=== PATIENT | female | born 1970 | race Caucasian/White ===

== ENCOUNTER 2021-08-04 12:03 | Emergency (ER) | payer BC ==
[~2021-08-04] VITALS: Ht 165.1 cm; Wt 139.1 kg
[2021-08-04 12:27] VITALS: BP 167/98
[2021-08-04 13:12] LABS: BASOPHILS % (AUTO) 0.2 % (0-1); EOSINOPHILS # (AUTO) 0.1 X10'3 (0-0.9); EOSINOPHILS % (AUTO) 0.3 % (0-6); HEMATOCRIT 44.3 % (35.0-45.0); HEMOGLOBIN 14.6 g/dl (12.0-16.0); LYMPHOCYTES # (AUTO) 3.7 X10'3 (1.1-4.8); LYMPHOCYTES % (AUTO) 21.2 % (21-51); MEAN CORPUSCULAR HEMOGLOBIN 32.4 PG (27.0-31.0); MEAN CORPUSCULAR HGB CONC 32.9 g/dL (33.0-36.5); MEAN CORPUSCULAR VOLUME 98.5 FL (78-98); MEAN PLATELET VOLUME 10.6 FL (7.4-10.4); MONOCYTES # (AUTO) 1.5 X10'3 (0-0.9); MONOCYTES % (AUTO) 8.4 % (2-12); NEUTROPHILS # (AUTO) 12.2 X10'3 (1.8-7.7); NEUTROPHILS % (AUTO) 69.9 % (42-75); PLATELET COUNT 265 X10'3 (140-440); RED BLOOD COUNT 4.49 X10'6 (4.20-5.60); RED CELL DISTRIBUTION WIDTH 13.8 % (11.5-14.5); WHITE BLOOD COUNT 17.5 X10'3 (4.5-11.0)
[2021-08-04 13:30] LABS: ALANINE AMINOTRANSFERASE 304 U/L (12-78); ALBUMIN/GLOBULIN RATIO 0.8 (1.1-1.5); ALKALINE PHOSPHATASE 63 IU/L (46-116); ANION GAP 10 (8-16); ASPARTATE AMINO TRANSFERASE 52 U/L (10-37); BILIRUBIN,TOTAL 0.3 MG/DL (0.1-1.0); BLOOD UREA NITROGEN 28 MG/DL (7-18); BUN/CREATININE RATIO 33.3 (6.6-38.0); CALCIUM 8.2 MG/DL (8.5-10.1); CHLORIDE 104 MMOL/L (99-107); CREATININE 0.84 MG/DL (0.40-0.90); GLUCOSE 114 MG/DL (70-104); SODIUM 139 MMOL/L (135-145); TOTAL CARBON DIOXIDE 25.3 MMOL/L (24-32); TOTAL PROTEIN 6.8 G/DL (6.4-8.2); eGFR 72 ML/MIN
[2021-08-04 14:35] LABS: URINE AMPHETAMINE SCREEN NEGATIVE (Neg); URINE BARBITUATE SCREEN NEGATIVE (Neg); URINE BENZODIAZEPINES SCREEN NEGATIVE (Neg); URINE CANNABINOID SCREEN POSITIVE (Neg); URINE COCAINE SCREEN NEGATIVE (Neg); URINE METHADONE SCREEN NEGATIVE (Neg); URINE OPIATE SCREEN NEGATIVE (Neg); URINE PHENCYCLIDINE SCREEN NEGATIVE (Neg)
[2021-08-04] MEDS ORDERED: nitroGLYCERIN 0.4mg SUBLingual tab SL PRN (14:55)
[2021-08-04] MEDS ORDERED: aspirin 81mg tab.chew PO ONE (14:55)
[2021-08-04] MEDS ORDERED: iohexol 350MG/ML 100ml bottle IV ONE (15:28)
[2021-08-04] MEDS ORDERED: ALBU6.7H9 INH (17:06)
[2021-08-04] MEDS ORDERED: AMOX-422 PO (17:06)
== END 2021-08-04 18:06 | disposition home or self-care (01) ==
LOC: ER 12:03
DX: J20.9 Acute bronchitis, unspecified (principal); R07.9 Chest pain, unspecified; Z20.822 Contact with and (suspected) exposure to COVID-19
CPT/HCPCS: 36415; 71045; 71275; 80053; 80305; 83880; 84484; 85025; 93005; 99285; Q9967; U0003; U0005

== ENCOUNTER 2022-11-17 13:54 | Inpatient (IN) | payer BC, MEDICARE ==
[~2022-11-17] VITALS: Ht 165.1 cm; Wt 151.8 kg
[~2022-11-17 13:54] MED LIST: ALBU6.7H14 INH
[2022-11-17] MEDS ORDERED: ipratropium/albuterol 3ml nebule NEB PRN (14:45)
[2022-11-17] MEDS ORDERED: methylPREDNISolone sod succ 125mg/2ml vial IV ONE (14:50)
[2022-11-17] MEDS ORDERED: normal saline 1000ML IV soln IVB ONE (14:50)
[2022-11-17] MEDS ORDERED: levoFLOXACIN-Levaquin 750MG/D5 150 ML IV ONE (14:55)
[2022-11-17 15:45] LABS: BASOPHILS # (AUTO) 0.1 X10'3 (0-0.2); BASOPHILS % (AUTO) 0.4 % (0-1); EOSINOPHILS % (AUTO) 0 % (0-6); HEMATOCRIT 38.3 % (35.0-45.0); HEMOGLOBIN 12.8 g/dl (12.0-16.0); LYMPHOCYTES # (AUTO) 1.6 X10'3 (1.1-4.8); LYMPHOCYTES % (AUTO) 10.9 % (21-51); MEAN CORPUSCULAR HEMOGLOBIN 32.4 PG (27.0-31.0); MEAN CORPUSCULAR HGB CONC 33.5 g/dL (33.0-36.5); MEAN CORPUSCULAR VOLUME 96.7 FL (78-98); MEAN PLATELET VOLUME 10.8 FL (7.4-10.4); MONOCYTES # (AUTO) 0.8 X10'3 (0-0.9); MONOCYTES % (AUTO) 5.6 % (2-12); NEUTROPHILS # (AUTO) 12.4 X10'3 (1.8-7.7); NEUTROPHILS % (AUTO) 83.1 % (42-75); PLATELET COUNT 255 X10'3 (140-440); RED BLOOD COUNT 3.96 X10'6 (4.20-5.60); RED CELL DISTRIBUTION WIDTH 12.9 % (11.5-14.5); WHITE BLOOD COUNT 14.9 X10'3 (4.5-11.0)
[2022-11-17] MEDS ORDERED: magnesium 2GM in 50ml NS 50 ML IV ONE (15:45)
[2022-11-17 16:00] LABS: ALANINE AMINOTRANSFERASE 84 U/L (12-78); ALBUMIN 2.7 G/DL (3.4-5.0); ALBUMIN/GLOBULIN RATIO 0.6 (1.1-1.5); ALKALINE PHOSPHATASE 67 IU/L (46-116); ANION GAP 11 (8-16); ASPARTATE AMINO TRANSFERASE 89 U/L (10-37); BILIRUBIN,TOTAL 0.2 MG/DL (0.1-1.0); BLOOD UREA NITROGEN 21 MG/DL (7-18); BUN/CREATININE RATIO 20.4 (6.6-38.0); CALCIUM 8.4 MG/DL (8.5-10.1); CHLORIDE 102 MMOL/L (99-107); CREATININE 1.03 MG/DL (0.40-0.90); GLUCOSE 338 MG/DL (70-104); POTASSIUM 4.2 MMOL/L (3.5-5.1); SODIUM 137 MMOL/L (135-145); TOTAL CARBON DIOXIDE 23.7 MMOL/L (24-32); eGFR 56 ML/MIN
[2022-11-17] MEDS ORDERED: normal saline 1000ML IV soln IV ONE (16:10)
[2022-11-17 17:04] LABS: ANISOCYTOSIS FEW; PLATELET ESTIMATE NORMAL; TOTAL CELLS COUNTED 100
[2022-11-17] MEDS ORDERED: iohexol 350MG/ML 100ml bottle IV ONE (17:33)
[2022-11-17] MEDS ORDERED: ondansetron/PF 4mg/2ml inj IV PRN (18:25)
[2022-11-17] MEDS ORDERED: mag hydrox/Alum hydrox/simeth 30ml oral suspension PO PRN (18:25)
[2022-11-17] MEDS ORDERED: bisacodyl 10mg suppository rectal RC PRN (18:25)
[2022-11-17] MEDS ORDERED: diphenhydrAMINE 25mg capsule PO PRN (18:25)
[2022-11-17] MEDS ORDERED: albuterol 2.5 MG/3 ML nebule NEB ONE (18:25)
[2022-11-17] MEDS ORDERED: potassium Cl 20 mEq SR tablet PO PRN ×2 (18:25)
[2022-11-17] MEDS ORDERED: morphine 2 MG/ML inj. syringe IV PRN ×2 (18:25)
[2022-11-17] MEDS ORDERED: DEXTROSE 15 GM of carb/4 tabs (each vial/BOTTLE has 4 tablets) PO PRN ×4 (18:25→19:40)
[2022-11-17] MEDS ORDERED: MESSAGE TO PHARMACY PO ONE ×2 (18:25→19:40)
[2022-11-17] MEDS: normal saline 1000ml 1,000 ML IV SCH (18:25)
[2022-11-17] MEDS ORDERED: potassium Cl 40MEQ/1/2NS 520ml 520 ML IV PRN (18:25)
[2022-11-17] MEDS ORDERED: PERFLUTREN PROTEIN-A MICROSPHR (Optison) 0.22 MG/ML 3ML VIAL IV ONE (18:25)
[2022-11-17] MEDS ORDERED: dextrose 50%-water 50ml dispensing syringe IV PRN ×4 (18:25→19:40)
[2022-11-17] MEDS ORDERED: magnesium hydroxide 30ml (MOM) UD suspension PO PRN (18:25)
[2022-11-17] MEDS ORDERED: magnesium 4gm in 100ml NS 100 ML IV PRN (18:25)
[2022-11-17] MEDS ORDERED: acetaminophen 325mg tablet PO PRN ×2 (18:25)
[2022-11-17] MEDS ORDERED: HYDROcodone/acetaminophen 5mg/325mg tablet PO PRN (18:25)
[2022-11-17] MEDS ORDERED: acetaminophen 650mg rectal suppository RC PRN (18:25)
[2022-11-17] MEDS ORDERED: glucagon, human recombinant 1mg kit SUBCUT PRN ×2 (18:25→19:40)
[2022-11-17] MEDS ORDERED: magnesium Cl slow-release 64mg tablet PO PRN (18:25)
[2022-11-17] MEDS: ipratropium/albuterol 3ml nebule NEB SCH ×2 (18:38→23:00)
[2022-11-17] MEDS ORDERED: GLYC1TAB23 PO (19:02)
[2022-11-17] MEDS ORDERED: GABA300C PO (19:02)
[2022-11-17] MEDS ORDERED: POTA-207 PO (19:02)
[2022-11-17] MEDS ORDERED: NIRM1TAB PO (19:02)
[2022-11-17] MEDS ORDERED: LISI40TA13 PO (19:02)
[2022-11-17] MEDS ORDERED: DULO30CA52 PO (19:02)
[2022-11-17] MEDS ORDERED: ATOR20TA66 PO (19:02)
[2022-11-17] MEDS ORDERED: METO-395 PO (19:02)
[2022-11-17] MEDS ORDERED: DICL75TA28 PO (19:02)
--- NOTE | 2022-11-17 19:05 | NUR ---
Assumed patient care. Page to hospitalist regarding concern of patient blood pressure, awaiting call back.
[2022-11-17 19:19] LABS: HEMOGLOBIN A1C 6.9 % (4.5-6.2)
[2022-11-17] MEDS: docusate sod 100mg capsule PO SCH (19:27)
[2022-11-17] MEDS: K and/or MAG REPLACEMENT MC SCH (19:29)
[2022-11-17] MEDS ORDERED: furosemide 40mg/4ml inj IV ONE (19:40)
[2022-11-17] MEDS ORDERED: insulin Lispro (HumaLOG) vial - multi-dose SQ SCH (19:40)
[2022-11-17] MEDS ORDERED: furosemide 10 MG/1 ML 10ml inj IV ONE (19:40)
[2022-11-17] MEDS: methylPREDNISolone sod succ 125mg/2ml vial IV SCH (20:01)
[2022-11-17] MEDS ORDERED: insulin glargine (Lantus) pen - multi-dose SQ SCH (21:00)
[2022-11-17] MEDS: enoxaparin 40mg/0.4ml syringe SUBCUT SCH (21:07)
[2022-11-17] MEDS: insulin glargine (Lantus) pen - multi-dose SQ SCH (21:09)
[2022-11-17] MEDS: insulin Lispro (HumaLOG) vial - multi-dose SQ SCH (21:10)
--- NOTE | 2022-11-17 21:31 | NUR ---
Page to hospitalist sent regarding patient blood pressure - 40mg furosemide ineffective. Awaiting call back.
[2022-11-17] MEDS ORDERED: hyDRALAzine 10mg tablet PO SCH (22:00)
[2022-11-17 22:22] LABS: CLARITY,URINE CLEAR (Clear); COLOR,URINE STRAW (Yellow); GLUCOSE, URINE NEGATIVE (Neg); KETONES,URINE NEGATIVE (Neg); LEUKOCYTE ESTERASE ,URINE NEGATIVE (Neg); NITRITES, URINE NEGATIVE (Neg); OCCULT BLOOD,URINE TRACE-INTACT (Neg); PROTEIN,URINE NEGATIVE (Neg); UROBILINOGEN,URINE 0.2 E.U/dL (0.2-1.0)
[2022-11-17 22:24] LABS: UA COLLECTION TYPE CLN CATCH MIDSTREAM
[2022-11-17 22:30] LABS: BACTERIA,URINE NONE SEEN /HPF (Neg); MUCUS STRANDS NONE SEEN /LPF (Neg); RBC,URINE 0-2 /HPF (0-2); SQUAMOUS EPITHELIAL CELL,UR FEW /LPF (FEW); WBC,URINE 0-4 /HPF (0-4)
[2022-11-17 22:36] LABS: URINE AMPHETAMINE SCREEN NEGATIVE (Neg); URINE BARBITUATE SCREEN NEGATIVE (Neg); URINE BENZODIAZEPINES SCREEN NEGATIVE (Neg); URINE CANNABINOID SCREEN NEGATIVE (Neg); URINE COCAINE SCREEN NEGATIVE (Neg); URINE METHADONE SCREEN NEGATIVE (Neg); URINE OPIATE SCREEN NEGATIVE (Neg); URINE PHENCYCLIDINE SCREEN NEGATIVE (Neg)
[2022-11-18] MEDS: ipratropium/albuterol 3ml nebule NEB SCH ×3 (02:35→11:00)
[2022-11-18] MEDS: benzonatate 100mg capsule PO SCH ×4 (02:50→23:47)
[2022-11-18] MEDS: methylPREDNISolone sod succ 125mg/2ml vial IV SCH ×4 (02:51→20:23)
--- NOTE | 2022-11-18 06:33 | NUR ---
Patient in room ED 3. I have received report from Holden HART and had the opportunity to ask questions and assume patient care.
[2022-11-18 07:16] LABS: BASOPHILS % (AUTO) 0.3 % (0-1); EOSINOPHILS % (AUTO) 0.1 % (0-6); HEMATOCRIT 40.8 % (35.0-45.0); HEMOGLOBIN 13.6 g/dl (12.0-16.0); LYMPHOCYTES # (AUTO) 1.7 X10'3 (1.1-4.8); MEAN CORPUSCULAR HEMOGLOBIN 32.1 PG (27.0-31.0); MEAN CORPUSCULAR HGB CONC 33.3 g/dL (33.0-36.5); MEAN CORPUSCULAR VOLUME 96.5 FL (78-98); MONOCYTES # (AUTO) 0.6 X10'3 (0-0.9); MONOCYTES % (AUTO) 3.8 % (2-12); NEUTROPHILS # (AUTO) 13.2 X10'3 (1.8-7.7); NEUTROPHILS % (AUTO) 84.8 % (42-75); PLATELET COUNT 243 X10'3 (140-440); RED BLOOD COUNT 4.23 X10'6 (4.20-5.60); RED CELL DISTRIBUTION WIDTH 12.9 % (11.5-14.5); WHITE BLOOD COUNT 15.5 X10'3 (4.5-11.0)
[2022-11-18 07:21] VITALS: BP 193/93
[2022-11-18 07:23] LABS: D-DIMER 0.43 MG/L FEU (0-0.50)
[2022-11-18 07:34] VITALS: BP 193/93
[2022-11-18 07:39] LABS: ALANINE AMINOTRANSFERASE 80 U/L (12-78); ALBUMIN 2.9 G/DL (3.4-5.0); ALBUMIN/GLOBULIN RATIO 0.7 (1.1-1.5); ALKALINE PHOSPHATASE 69 IU/L (46-116); ANION GAP 9 (8-16); ASPARTATE AMINO TRANSFERASE 38 U/L (10-37); BILIRUBIN,TOTAL 0.2 MG/DL (0.1-1.0); BLOOD UREA NITROGEN 26 MG/DL (7-18); BUN/CREATININE RATIO 27.7 (6.6-38.0); C-REACTIVE PROTEIN 0.91 MG/DL (0.0-0.5); CALCIUM 8.6 MG/DL (8.5-10.1); CHLORIDE 100 MMOL/L (99-107); CHOL/HDL RATIO 4.1 (0.00-4.99); CHOLESTEROL 186 MG/DL (0-200); CREATININE 0.94 MG/DL (0.40-0.90); GLUCOSE 278 MG/DL (70-104); HDL CHOLESTEROL 45 MG/DL (35-60); LACTATE DEHYDROGENASE 155 U/L (81-234); LDL CHOLESTEROL 110 MG/DL (50-100); MAGNESIUM 2.4 MG/DL (1.5-2.4); POTASSIUM 4.8 MMOL/L (3.5-5.1); SODIUM 135 MMOL/L (135-145); TOTAL CARBON DIOXIDE 26.2 MMOL/L (24-32); TOTAL PROTEIN 7.3 G/DL (6.4-8.2); TRIGLYCERIDES 255 MG/DL (20-135); eGFR 63 ML/MIN
[2022-11-18] MEDS: normal saline 1000ml 1,000 ML IV SCH ×2 (07:45→21:16)
[2022-11-18] MEDS: K and/or MAG REPLACEMENT MC SCH ×2 (08:00→20:00)
[2022-11-18] MEDS: docusate sod 100mg capsule PO SCH ×2 (08:00→20:22)
[2022-11-18 08:42] LABS: LARGE PLATELETS FEW; PLATELET ESTIMATE NORMAL
--- NOTE | 2022-11-18 08:57 | NUR ---
patient 3019, Alexandra Vincent, please reconcile meds. Thank you, HAILEY Hall PCU @[phone].
[2022-11-18] MEDS: insulin Lispro (HumaLOG) vial - multi-dose SQ SCH ×4 (09:12→21:40)
[2022-11-18] MEDS: enoxaparin 40mg/0.4ml syringe SUBCUT SCH ×2 (10:11→20:22)
[2022-11-18 11:00] VITALS: BP 185/80
--- NOTE | 2022-11-18 11:27 | NUR ---
Pt. refused 1100 SVN. States she doesn't need one at this time
[2022-11-18] MEDS ORDERED: FURO-149 PO (15:00)
[2022-11-18] MEDS ORDERED: ALBU6.7H14 INH (15:01)
[2022-11-18 15:02] VITALS: BP 145/88
[2022-11-18] MEDS ORDERED: ACET-2006 PO (15:02)
[2022-11-18] MEDS ORDERED: IBUP-1984 PO (15:03)
[2022-11-18] MEDS ORDERED: FLUT1BLS4 IH (15:03)
[2022-11-18] MEDS ORDERED: PRED5TAB49 PO (15:05)
[2022-11-18] MEDS ORDERED: AZIT250T83 PO (15:06)
[2022-11-18] MEDS: levoFLOXACIN-Levaquin 750MG/D5 150 ML IV SCH (16:46)
[2022-11-18] MEDS: HYDROcodone/acetaminophen 10/325mg tab PO PRN (17:05)
[2022-11-18] MEDS ORDERED: glycopyrrolate 1mg tablet PO PRN (17:15)
[2022-11-18] MEDS ORDERED: non-formulary drug (Acetaminophen (Acetaminophen Extra Strength) 1 TAB) PO PRN (17:15)
[2022-11-18] MEDS ORDERED: furosemide 40mg tablet PO PRN (17:15)
[2022-11-18] MEDS ORDERED: albuterol 2.5 MG/3 ML nebule NEB PRN (17:40)
[2022-11-18 18:00] VITALS: BP_SYST 180; BP_SYST 214; BP_DIAS 102; BP_DIAS 83
--- NOTE | 2022-11-18 18:00 | NUR ---
Patient in room PCU 3019. I have received report from STEPH HART and had the opportunity to ask questions and assume patient care.
--- NOTE | 2022-11-18 18:21 | NUR ---
Problems reprioritized. Patient report given, questions answered & plan of care reviewed with Laurita HART.
[2022-11-18] MEDS ORDERED: albuterol 2.5 MG/3 ML nebule NEB SCH (19:00)
[2022-11-18] MEDS: duloxetine 30mg CAPSULE.DR PO SCH (20:24)
[2022-11-18] MEDS: gabapentin 300mg capsule PO SCH (20:28)
[2022-11-18] MEDS: atorvastatin 20mg tablet PO SCH (20:28)
[2022-11-18] MEDS: hyDRALAzine 10mg tablet PO PRN (20:29)
[2022-11-18] MEDS: lisinopril 20mg tablet PO SCH (20:53)
[2022-11-18] MEDS ORDERED: ipratropium 0.5 MG/2.5ML nebule IH SCH (21:00)
[2022-11-18] MEDS ORDERED: budesonide 0.5mg/2ml UD nebule IH SCH (21:00)
[2022-11-18] MEDS: insulin glargine (Lantus) pen - multi-dose SQ SCH (21:34)
[2022-11-18 22:00] VITALS: BP 180/86
[2022-11-18] MEDS ORDERED: metoprolol succinate 25mg (24-HOUR) SR. Tablet PO ONE (22:25)
[2022-11-19] MEDS: methylPREDNISolone sod succ 125mg/2ml vial IV SCH ×4 (01:56→20:51)
[2022-11-19 02:00] VITALS: BP 158/77
[2022-11-19 06:15] VITALS: BP 172/92
--- NOTE | 2022-11-19 06:44 | NUR ---
Patient in room PCU 3019. I have received report from Laurita HART and had the opportunity to ask questions and assume patient care. Pt is Sitting up in bed on cell phone. Pt on 2L NC. No s/s of distress. No c/o pain at this time. BLL, call light within reach, frequently used items in reach, frequent rounding. Will continue to monitor.
[2022-11-19 07:03] LABS: BASOPHILS % (AUTO) 0.1 % (0-1); EOSINOPHILS % (AUTO) 0 % (0-6); HEMATOCRIT 41.1 % (35.0-45.0); HEMOGLOBIN 13.5 g/dl (12.0-16.0); LYMPHOCYTES # (AUTO) 1.7 X10'3 (1.1-4.8); LYMPHOCYTES % (AUTO) 10.4 % (21-51); MEAN CORPUSCULAR HEMOGLOBIN 31.3 PG (27.0-31.0); MEAN CORPUSCULAR HGB CONC 32.7 g/dL (33.0-36.5); MEAN CORPUSCULAR VOLUME 95.6 FL (78-98); MEAN PLATELET VOLUME 10.8 FL (7.4-10.4); MONOCYTES # (AUTO) 0.9 X10'3 (0-0.9); MONOCYTES % (AUTO) 5.6 % (2-12); NEUTROPHILS # (AUTO) 13.7 X10'3 (1.8-7.7); NEUTROPHILS % (AUTO) 83.9 % (42-75); PLATELET COUNT 269 X10'3 (140-440); WHITE BLOOD COUNT 16.3 X10'3 (4.5-11.0)
[2022-11-19 07:08] LABS: D-DIMER 0.29 MG/L FEU (0-0.50)
[2022-11-19 07:15] LABS: ALANINE AMINOTRANSFERASE 81 U/L (12-78); ALBUMIN 2.8 G/DL (3.4-5.0); ALBUMIN/GLOBULIN RATIO 0.7 (1.1-1.5); ALKALINE PHOSPHATASE 62 IU/L (46-116); ANION GAP 8 (8-16); ASPARTATE AMINO TRANSFERASE 45 U/L (10-37); BILIRUBIN,TOTAL 0.3 MG/DL (0.1-1.0); BLOOD UREA NITROGEN 28 MG/DL (7-18); BUN/CREATININE RATIO 32.2 (6.6-38.0); C-REACTIVE PROTEIN 0.43 MG/DL (0.0-0.5); CALCIUM 8.6 MG/DL (8.5-10.1); CHLORIDE 102 MMOL/L (99-107); CREATININE 0.87 MG/DL (0.40-0.90); GLUCOSE 226 MG/DL (70-104); LACTATE DEHYDROGENASE 214 U/L (81-234); MAGNESIUM 2.5 MG/DL (1.5-2.4); POTASSIUM 4.5 MMOL/L (3.5-5.1); SODIUM 136 MMOL/L (135-145); TOTAL CARBON DIOXIDE 26.4 MMOL/L (24-32); TOTAL PROTEIN 6.9 G/DL (6.4-8.2); eGFR 69 ML/MIN
[2022-11-19] MEDS: lisinopril 20mg tablet PO SCH ×2 (08:00→20:54)
[2022-11-19] MEDS: Fluticasone/Umeclidin/Vilanter (Trelegy Ellipta 100-62.5-25) IH SCH (08:00)
[2022-11-19] MEDS: benzonatate 100mg capsule PO SCH ×2 (08:00→16:00)
[2022-11-19] MEDS: docusate sod 100mg capsule PO SCH ×2 (08:00→20:57)
[2022-11-19] MEDS: duloxetine 30mg CAPSULE.DR PO SCH ×2 (08:00→20:55)
[2022-11-19] MEDS: metoprolol succinate 25mg (24-HOUR) SR. Tablet PO SCH (08:00)
[2022-11-19] MEDS ORDERED: metoprolol succinate 25mg (24-HOUR) SR. Tablet PO SCH (08:00)
[2022-11-19] MEDS: enoxaparin 40mg/0.4ml syringe SUBCUT SCH ×2 (08:00→20:57)
[2022-11-19] MEDS: K and/or MAG REPLACEMENT MC SCH ×2 (08:00→20:00)
[2022-11-19 08:30] VITALS: BP 134/77
--- NOTE | 2022-11-19 09:32 | NUR ---
Message: Alexandra Vincent 3019: HR has been below 60 for a few hours. Do you want Metoprolol ER 25mg given? -Isabel EXT [phone] Addendum: 11/19/22 at 1344 by Isabel Scherer RN said to hold Metoprolol for today. Resume tomorrow as scheduled.
[2022-11-19] MEDS: insulin Lispro (HumaLOG) vial - multi-dose SQ SCH ×3 (09:46→21:37)
[2022-11-19] MEDS: normal saline 1000ml 1,000 ML IV SCH ×2 (10:25→23:45)
[2022-11-19] MEDS: HYDROcodone/acetaminophen 10/325mg tab PO PRN (13:23)
--- NOTE | 2022-11-19 13:43 | NUR ---
Alexandra Vincent [phone] Asking for Breathing TX. -Thanks
[2022-11-19] MEDS: albuterol 60 PUFF/8GM Inhaler IH PRN ×2 (15:21→22:13)
[2022-11-19] MEDS: levoFLOXACIN-Levaquin 750MG/D5 150 ML IV SCH (16:00)
[2022-11-19 18:00] VITALS: BP 195/86
[2022-11-19] MEDS: gabapentin 300mg capsule PO SCH (20:55)
[2022-11-19] MEDS: atorvastatin 20mg tablet PO SCH (20:56)
[2022-11-19] MEDS: insulin glargine (Lantus) pen - multi-dose SQ SCH (21:34)
[2022-11-19] MEDS: hyDRALAzine 10mg tablet PO PRN (21:53)
[2022-11-19 22:00] VITALS: BP 166/95
[2022-11-19] MEDS ORDERED: amLODIPine 5mg tablet PO ONE (23:25)
[2022-11-20] MEDS: benzonatate 100mg capsule PO SCH ×2 (00:05→09:18)
[2022-11-20] MEDS: HYDROcodone/acetaminophen 10/325mg tab PO PRN ×2 (00:08→09:18)
[2022-11-20 02:00] VITALS: BP 168/92
[2022-11-20] MEDS: methylPREDNISolone sod succ 125mg/2ml vial IV SCH ×3 (02:09→14:23)
[2022-11-20 06:00] VITALS: BP 157/78
--- NOTE | 2022-11-20 06:43 | NUR ---
Patient in room PCU 3019. I have received report from Laurita HART and had the opportunity to ask questions and assume patient care. Pt is resting on L side of body in bed. Pt on CPAP. No s/s of distress. No s/s of pain at this time. 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 Will continue to monitor.
[2022-11-20 07:36] LABS: BASOPHILS % (AUTO) 0.2 % (0-1); EOSINOPHILS % (AUTO) 0 % (0-6); HEMATOCRIT 40.1 % (35.0-45.0); HEMOGLOBIN 13.2 g/dl (12.0-16.0); LYMPHOCYTES # (AUTO) 1.7 X10'3 (1.1-4.8); LYMPHOCYTES % (AUTO) 12.3 % (21-51); MEAN CORPUSCULAR HEMOGLOBIN 31.7 PG (27.0-31.0); MEAN CORPUSCULAR HGB CONC 32.9 g/dL (33.0-36.5); MEAN CORPUSCULAR VOLUME 96.5 FL (78-98); MEAN PLATELET VOLUME 10.5 FL (7.4-10.4); MONOCYTES # (AUTO) 0.6 X10'3 (0-0.9); MONOCYTES % (AUTO) 4.7 % (2-12); NEUTROPHILS # (AUTO) 11.4 X10'3 (1.8-7.7); NEUTROPHILS % (AUTO) 82.8 % (42-75); PLATELET COUNT 228 X10'3 (140-440); RED BLOOD COUNT 4.16 X10'6 (4.20-5.60); RED CELL DISTRIBUTION WIDTH 12.9 % (11.5-14.5); WHITE BLOOD COUNT 13.8 X10'3 (4.5-11.0)
[2022-11-20 07:52] LABS: D-DIMER 0.34 MG/L FEU (0-0.50)
[2022-11-20] MEDS: Fluticasone/Umeclidin/Vilanter (Trelegy Ellipta 100-62.5-25) IH SCH (07:53)
[2022-11-20 07:57] LABS: ALANINE AMINOTRANSFERASE 99 U/L (12-78); ALBUMIN 2.6 G/DL (3.4-5.0); ALBUMIN/GLOBULIN RATIO 0.7 (1.1-1.5); ALKALINE PHOSPHATASE 58 IU/L (46-116); ANION GAP 7 (8-16); ASPARTATE AMINO TRANSFERASE 38 U/L (10-37); BILIRUBIN,TOTAL 0.3 MG/DL (0.1-1.0); BLOOD UREA NITROGEN 30 MG/DL (7-18); BUN/CREATININE RATIO 30.9 (6.6-38.0); C-REACTIVE PROTEIN 0.15 MG/DL (0.0-0.5); CHLORIDE 103 MMOL/L (99-107); CREATININE 0.97 MG/DL (0.40-0.90); GLUCOSE 224 MG/DL (70-104); LACTATE DEHYDROGENASE 170 U/L (81-234); MAGNESIUM 2.3 MG/DL (1.5-2.4); PHOSPHORUS 4.4 MG/DL (2.3-4.5); POTASSIUM 4.6 MMOL/L (3.5-5.1); SODIUM 135 MMOL/L (135-145); TOTAL CARBON DIOXIDE 25.4 MMOL/L (24-32); TOTAL PROTEIN 6.4 G/DL (6.4-8.2); eGFR 61 ML/MIN
[2022-11-20] MEDS: docusate sod 100mg capsule PO SCH (08:00)
[2022-11-20] MEDS: metoprolol succinate 25mg (24-HOUR) SR. Tablet PO SCH (08:00)
[2022-11-20] MEDS: K and/or MAG REPLACEMENT MC SCH (08:00)
[2022-11-20] MEDS: insulin Lispro (HumaLOG) vial - multi-dose SQ SCH ×2 (09:17→14:28)
[2022-11-20] MEDS: duloxetine 30mg CAPSULE.DR PO SCH (09:17)
[2022-11-20] MEDS: lisinopril 20mg tablet PO SCH (09:19)
[2022-11-20] MEDS: enoxaparin 40mg/0.4ml syringe SUBCUT SCH (09:22)
[2022-11-20 09:47] VITALS: BP 156/84
[2022-11-20 11:00] VITALS: BP 171/81
[2022-11-20] MEDS: normal saline 1000ml 1,000 ML IV SCH (13:05)
[2022-11-20] MEDS ORDERED: ASPI-611 PO (13:15)
[2022-11-20] MEDS ORDERED: LACT1CAP26 PO (13:15)
[2022-11-20] MEDS ORDERED: LEVO750T68 PO (13:15)
[2022-11-20] MEDS ORDERED: AMLO5TAB16 PO (13:15)
[2022-11-20] MEDS ORDERED: METF-1203 PO (13:15)
[2022-11-20] MEDS ORDERED: PRED10TA23 PO (13:18)
--- NOTE | 2022-11-20 16:42 | NUR ---
Pt DC'd to personal vehicle with .VSS, PT afebrile no issues with medications. PIV to RFA removed. Tip intact, no c/o pain at this site. All discharge questions answered. All personal belonging left with PT.
== END 2022-11-20 15:59 | disposition home or self-care (01) | DRG 177 ==
LOC: ER 13:55 → ED HOLD 18:25 → PCU 3S 11-18 07:06
PROVIDERS: ADMIT Family Medicine; ATTEND Family Medicine
PROC: B32T1ZZ Computerized Tomography (CT Scan) of Left Pulmonary Artery using Low Osmolar Contrast (ICD-10-PCS; 2022-11-17)
PROC: B3201ZZ Computerized Tomography (CT Scan) of Thoracic Aorta using Low Osmolar Contrast (ICD-10-PCS; 2022-11-17)
PROC: B32S1ZZ Computerized Tomography (CT Scan) of Right Pulmonary Artery using Low Osmolar Contrast (ICD-10-PCS; 2022-11-17)
PROC: 5A09357 Assistance with Respiratory Ventilation, Less than 24 Consecutive Hours, Continuous Positive Airway Pressure (ICD-10-PCS; principal; 2022-11-18)
PROC: 5A09357 Assistance with Respiratory Ventilation, Less than 24 Consecutive Hours, Continuous Positive Airway Pressure (ICD-10-PCS; 2022-11-19)
PROC: 5A09357 Assistance with Respiratory Ventilation, Less than 24 Consecutive Hours, Continuous Positive Airway Pressure (ICD-10-PCS; 2022-11-20)
DX: U07.1 COVID-19 (principal); J12.82 Pneumonia due to coronavirus disease 2019; J15.9 Unspecified bacterial pneumonia; N17.0 Acute kidney failure with tubular necrosis; J96.20 Acute and chronic respiratory failure, unspecified whether with hypoxia or hypercapnia; J98.11 Atelectasis; E87.20 Acidosis, unspecified; J44.0 Chronic obstructive pulmonary disease with (acute) lower respiratory infection; J44.1 Chronic obstructive pulmonary disease with (acute) exacerbation; J45.901 Unspecified asthma with (acute) exacerbation; Z68.43 Body mass index [BMI] 50.0-59.9, adult; F12.90 Cannabis use, unspecified, uncomplicated; E11.9 Type 2 diabetes mellitus without complications; E66.01 Morbid (severe) obesity due to excess calories; E86.0 Dehydration; G47.33 Obstructive sleep apnea (adult) (pediatric); Z87.891 Personal history of nicotine dependence; Z88.1 Allergy status to other antibiotic agents; Z90.710 Acquired absence of both cervix and uterus; Z90.49 Acquired absence of other specified parts of digestive tract; Z71.3 Dietary counseling and surveillance
CPT/HCPCS: 36415; 71045; 71275; 74176; 80053; 80061; 80305; 81001; 82948; 83036; 83605; 83615; 83735; 83880; 84100; 84145; 84443; 84484; 85007; 85008; 85025; 85379; 86140; 87040; 87081; 87502; 87503; 87635; 93306; 94640; 94660; 94760; 96361; 96365; 96366; 96367; 96375; 97110; 97161; 99285; A4615; C9803; G0378; J1650; J1815; J1940; J1956; J2930; J3475; J3490; J7030; J7040; Q9967

== ENCOUNTER 2023-09-02 16:30 | Emergency (ER) | payer BC, MEDICARE ==
[~2023-09-02] VITALS: Ht 165.1 cm; Wt 160.9 kg
[~2023-09-02 16:30] MED LIST changes: +ACET-2006 PO; +AMLO5TAB16 PO; +ATOR20TA66 PO; +DULO30CA52 PO; +FLUT1BLS4 IH; +FURO-149 PO; +GABA300C PO; +GLYC1TAB23 PO; +LACT1CAP26 PO; +LISI40TA13 PO; +METO-395 PO; +POTA-207 PO; +PRED10TA23 PO
[2023-09-02 16:58] LABS: BASOPHILS # (AUTO) 0.1 X10'3 (0-0.2); BASOPHILS % (AUTO) 0.9 % (0-1); EOSINOPHILS # (AUTO) 1.2 X10'3 (0-0.9); EOSINOPHILS % (AUTO) 8.5 % (0-6); HEMOGLOBIN 14.6 g/dl (12.0-16.0); LYMPHOCYTES # (AUTO) 4.4 X10'3 (1.1-4.8); LYMPHOCYTES % (AUTO) 32.7 % (21-51); MEAN CORPUSCULAR HEMOGLOBIN 31.9 PG (27.0-31.0); MEAN CORPUSCULAR HGB CONC 33.1 g/dL (33.0-36.5); MEAN CORPUSCULAR VOLUME 96.5 FL (78-98); MEAN PLATELET VOLUME 10.4 FL (7.4-10.4); MONOCYTES % (AUTO) 7.5 % (2-12); NEUTROPHILS # (AUTO) 6.8 X10'3 (1.8-7.7); NEUTROPHILS % (AUTO) 50.4 % (42-75); PLATELET COUNT 315 X10'3 (140-440); RED BLOOD COUNT 4.57 X10'6 (4.20-5.60); RED CELL DISTRIBUTION WIDTH 13.1 % (11.5-14.5); WHITE BLOOD COUNT 13.6 X10'3 (4.5-11.0)
[2023-09-02 17:22] LABS: PLATELET ESTIMATE NORMAL; TOTAL CELLS COUNTED 100
[2023-09-02 17:23] LABS: STOMATOCYTES FEW; TEAR DROP CELLS FEW
[2023-09-02 17:38] LABS: ALANINE AMINOTRANSFERASE 37 U/L (12-78); ALBUMIN 3.5 G/DL (3.4-5.0); ALBUMIN/GLOBULIN RATIO 0.8 (1.1-1.5); ALKALINE PHOSPHATASE 75 IU/L (46-116); ANION GAP 9 (8-16); ASPARTATE AMINO TRANSFERASE 24 U/L (10-37); BILIRUBIN,TOTAL 0.1 MG/DL (0.1-1.0); BLOOD UREA NITROGEN 23 MG/DL (7-18); CALCIUM 9.9 MG/DL (8.5-10.1); CHLORIDE 102 MMOL/L (99-107); GLUCOSE 127 MG/DL (70-104); SODIUM 138 MMOL/L (135-145); TOTAL CARBON DIOXIDE 27.2 MMOL/L (24-32); TOTAL PROTEIN 7.9 G/DL (6.4-8.2); eCRCL 59 ML/MIN; eGFR 58 ML/MIN
[2023-09-02 17:45] LABS: PRO BRAIN NATRIURETIC PEPTIDE 300 PG/ML (0-125)
[2023-09-02 17:48] LABS: POTASSIUM 4.6 MMOL/L (3.5-5.1)
[2023-09-02 20:59] VITALS: BP 136/94; RESP 20; O2SAT 95
[2023-09-02] MEDS ORDERED: aspirin 81mg tab.chew PO ONE (22:30)
[2023-09-02 22:46] VITALS: PULSE 57; TEMP 97.8
--- NOTE | 2023-09-02 22:50 | NUR ---
NO COMPLAINTS OF PAIN OR CP ON D/C
== END 2023-09-02 22:51 | disposition home or self-care (01) ==
LOC: ER 16:31
DX: R07.9 Chest pain, unspecified (principal); Z88.1 Allergy status to other antibiotic agents; Z79.899 Other long term (current) drug therapy
CPT/HCPCS: 36415; 71045; 80053; 83880; 84484; 85007; 85025; 93005; 99285

== ENCOUNTER 2023-11-19 12:54 | Inpatient (IN) | payer BC, MEDICARE ==
[~2023-11-19] VITALS: Ht 165.1 cm; Wt 161.4 kg
[2023-11-19 13:46] LABS: BASOPHILS # (AUTO) 0.1 X10'3 (0-0.2); BASOPHILS % (AUTO) 0.5 % (0-1); EOSINOPHILS # (AUTO) 1.3 X10'3 (0-0.9); HEMATOCRIT 45.2 % (35.0-45.0); HEMOGLOBIN 14.9 g/dl (12.0-16.0); LYMPHOCYTES # (AUTO) 2.5 X10'3 (1.1-4.8); LYMPHOCYTES % (AUTO) 16.8 % (21-51); MEAN CORPUSCULAR HEMOGLOBIN 31.6 PG (27.0-31.0); MEAN CORPUSCULAR VOLUME 95.6 FL (78-98); MEAN PLATELET VOLUME 10.1 FL (7.4-10.4); MONOCYTES % (AUTO) 6.8 % (2-12); NEUTROPHILS # (AUTO) 9.9 X10'3 (1.8-7.7); NEUTROPHILS % (AUTO) 66.9 % (42-75); PLATELET COUNT 327 X10'3 (140-440); RED BLOOD COUNT 4.73 X10'6 (4.20-5.60); RED CELL DISTRIBUTION WIDTH 12.8 % (11.5-14.5); WHITE BLOOD COUNT 14.8 X10'3 (4.5-11.0)
[2023-11-19 14:01] LABS: ALANINE AMINOTRANSFERASE 35 U/L (12-78); ALBUMIN 3.4 G/DL (3.4-5.0); ALBUMIN/GLOBULIN RATIO 0.8 (1.1-1.5); ALKALINE PHOSPHATASE 66 IU/L (46-116); ANION GAP 15 (8-16); ASPARTATE AMINO TRANSFERASE 17 U/L (10-37); BILIRUBIN,TOTAL 0.2 MG/DL (0.1-1.0); BLOOD UREA NITROGEN 21 MG/DL (7-18); BUN/CREATININE RATIO 22.3 (10.0-20.0); CALCIUM 9.6 MG/DL (8.5-10.1); CHLORIDE 98 MMOL/L (99-107); CREATININE 0.94 MG/DL (0.40-0.90); GLUCOSE 212 MG/DL (70-104); SODIUM 136 MMOL/L (135-145); TOTAL CARBON DIOXIDE 23.1 MMOL/L (24-32); TOTAL PROTEIN 7.7 G/DL (6.4-8.2); eCRCL 63 ML/MIN; eGFR 63 ML/MIN
[2023-11-19 14:08] LABS: PRO BRAIN NATRIURETIC PEPTIDE 32 PG/ML (0-125)
[2023-11-19] MEDS ORDERED: albuterol 2.5 MG/3 ML nebule NEB ONE (14:40)
[2023-11-19] MEDS ORDERED: CefTRIAXone 2gm/D5W 50ml BAG 50 ML IV ONE (14:40)
[2023-11-19] MEDS ORDERED: ipratropium 0.5 MG/2.5ML nebule IH ONE (14:40)
[2023-11-19 16:02] LABS: MAGNESIUM 1.6 MG/DL (1.5-2.4)
[2023-11-19 16:08] VITALS: PULSE 103; RESP 24; O2SAT 94
[2023-11-19 16:13] LABS: URINE HCG NEGATIVE (NEG)
[2023-11-19 16:16] LABS: BILIRUBIN,URINE NEGATIVE (Neg); CLARITY,URINE SLIGHTLY CLOUDY (Clear); COLOR,URINE YELLOW (Yellow); GLUCOSE, URINE NEGATIVE (Neg); KETONES,URINE NEGATIVE (Neg); LEUKOCYTE ESTERASE ,URINE NEGATIVE (Neg); NITRITES, URINE NEGATIVE (Neg); OCCULT BLOOD,URINE NEGATIVE (Neg); PROTEIN,URINE 100 mg/dl (Neg); UROBILINOGEN,URINE 0.2 E.U/dL (0.2-1.0)
[2023-11-19 16:22] VITALS: PULSE 96; RESP 18; O2SAT 95
[2023-11-19 16:43] LABS: UA COLLECTION TYPE CLN CATCH MIDSTREAM
[2023-11-19 16:44] LABS: BACTERIA,URINE FEW /HPF (Neg); RBC,URINE 0-2 /HPF (0-2); SQUAMOUS EPITHELIAL CELL,UR MODERATE /LPF (FEW); WBC,URINE 0-4 /HPF (0-4)
[2023-11-19] MEDS ORDERED: morphine 2 MG/ML inj. syringe IV PRN (20:25)
[2023-11-19] MEDS ORDERED: acetaminophen 325mg tablet PO PRN (20:25)
[2023-11-19] MEDS ORDERED: mag hydrox/Alum hydrox/simeth 30ml oral suspension PO PRN (20:25)
[2023-11-19] MEDS ORDERED: ondansetron/PF 4mg/2ml inj IV PRN (20:25)
[2023-11-19] MEDS ORDERED: bisacodyl 10mg suppository rectal RC PRN (20:25)
[2023-11-19] MEDS: normal saline 1000ml 1,000 ML IV SCH (20:25)
[2023-11-19] MEDS ORDERED: acetaminophen 650mg rectal suppository RC PRN (20:25)
[2023-11-19] MEDS ORDERED: magnesium hydroxide 30ml (MOM) UD suspension PO PRN (20:25)
[2023-11-19] MEDS ORDERED: ondansetron 4mg rapidly disintigrating tab PO PRN (20:25)
[2023-11-20] VITALS (14 sets, daily range): BP systolic 106–162; BP diastolic 46–75; PULSE 68–86; RESP 12–24; TEMP 97.6–98.7; O2SAT 91–95
[2023-11-20] MEDS ORDERED: gabapentin 300mg capsule PO ONE (00:05)
[2023-11-20] MEDS ORDERED: lisinopril 20mg tablet PO ONE (00:05)
[2023-11-20] MEDS ORDERED: duloxetine 30mg CAPSULE.DR PO ONE (00:05)
[2023-11-20] MEDS: HYDROcodone/acetaminophen 5mg/325mg tablet PO PRN (00:22)
[2023-11-20] MEDS: atorvastatin 20mg tablet PO SCH ×2 (00:42→20:16)
[2023-11-20] MEDS ORDERED: baclofen 10mg tablet PO PRN (01:35)
[2023-11-20 06:32] LABS: APTT 25 SECONDS (22-32); INR 0.9 INR; PROTHROMBIN TIME 10.1 SECONDS (9.0-12.0)
[2023-11-20 06:33] LABS: BASOPHILS # (AUTO) 0.1 X10'3 (0-0.2); BASOPHILS % (AUTO) 0.6 % (0-1); EOSINOPHILS % (AUTO) 8.5 % (0-6); HEMATOCRIT 39.6 % (35.0-45.0); HEMOGLOBIN 13.1 g/dl (12.0-16.0); LYMPHOCYTES # (AUTO) 2.2 X10'3 (1.1-4.8); LYMPHOCYTES % (AUTO) 19.3 % (21-51); MEAN CORPUSCULAR HEMOGLOBIN 31.6 PG (27.0-31.0); MEAN CORPUSCULAR HGB CONC 33.1 g/dL (33.0-36.5); MEAN CORPUSCULAR VOLUME 95.5 FL (78-98); MEAN PLATELET VOLUME 10.2 FL (7.4-10.4); MONOCYTES # (AUTO) 1.1 X10'3 (0-0.9); NEUTROPHILS % (AUTO) 61.6 % (42-75); PLATELET COUNT 253 X10'3 (140-440); RED BLOOD COUNT 4.15 X10'6 (4.20-5.60); RED CELL DISTRIBUTION WIDTH 12.6 % (11.5-14.5); WHITE BLOOD COUNT 11.4 X10'3 (4.5-11.0)
[2023-11-20] MEDS: normal saline 1000ml 1,000 ML IV SCH ×2 (06:35→18:28)
[2023-11-20 06:48] LABS: ALANINE AMINOTRANSFERASE 31 U/L (12-78); ALBUMIN 3.1 G/DL (3.4-5.0); ALBUMIN/GLOBULIN RATIO 0.8 (1.1-1.5); ALKALINE PHOSPHATASE 57 IU/L (46-116); ANION GAP 11 (8-16); ASPARTATE AMINO TRANSFERASE 18 U/L (10-37); BILIRUBIN,TOTAL 0.3 MG/DL (0.1-1.0); BLOOD UREA NITROGEN 22 MG/DL (7-18); BUN/CREATININE RATIO 25.6 (10.0-20.0); CALCIUM 9.1 MG/DL (8.5-10.1); CHLORIDE 99 MMOL/L (99-107); CREATININE 0.86 MG/DL (0.40-0.90); GLUCOSE 160 MG/DL (70-104); MAGNESIUM 1.6 MG/DL (1.5-2.4); PHOSPHORUS 4.7 MG/DL (2.3-4.5); POTASSIUM 4.1 MMOL/L (3.5-5.1); PRO BRAIN NATRIURETIC PEPTIDE 47 PG/ML (0-125); SODIUM 137 MMOL/L (135-145); TOTAL CARBON DIOXIDE 26.8 MMOL/L (24-32); TOTAL PROTEIN 6.9 G/DL (6.4-8.2); eCRCL 69 ML/MIN; eGFR 69 ML/MIN
[2023-11-20] MEDS ORDERED: atorvastatin 20mg tablet PO SCH ×2 (08:00→21:00)
[2023-11-20] MEDS: nicotine 14mg patch - 24hr TD SCH (08:00)
[2023-11-20] MEDS: docusate sod 100mg capsule PO SCH ×2 (08:00→20:00)
[2023-11-20] MEDS: CEFTRIAXONE IV SCH (08:32)
[2023-11-20] MEDS: NORMAL SALINE IV SCH (08:32)
[2023-11-20] MEDS: heparin, porcine 5000 units/ml vial SQ SCH ×2 (08:34→20:17)
[2023-11-20] MEDS: azithromycin/NS 500mg/250ml 250 ML IV SCH (09:42)
[2023-11-20] MEDS ORDERED: METF-436 PO (10:04)
[2023-11-20] MEDS ORDERED: non-formulary drug (Acetaminophen (Acetaminophen Extra Strength) 1 TAB) PO PRN (10:10)
[2023-11-20] MEDS ORDERED: furosemide 40mg tablet PO PRN (10:10)
[2023-11-20] MEDS ORDERED: glycopyrrolate 1mg tablet PO PRN (10:10)
[2023-11-20] MEDS: albuterol 2.5 MG/3 ML nebule NEB PRN ×3 (10:41→23:15)
[2023-11-20] MEDS: potassium Cl 20 mEq SR tablet PO SCH (12:21)
[2023-11-20] MEDS: amLODIPine 5mg tablet PO SCH (12:21)
[2023-11-20] MEDS: metoprolol succinate 25mg (24-HOUR) SR. Tablet PO SCH (12:21)
[2023-11-20] MEDS: metFORMIN 500mg tablet PO SCH (20:16)
[2023-11-20] MEDS: gabapentin 300mg capsule PO SCH (20:16)
[2023-11-20] MEDS: duloxetine 30mg CAPSULE.DR PO SCH (20:16)
[2023-11-20] MEDS: lisinopril 20mg tablet PO SCH (20:17)
[2023-11-21] VITALS (12 sets, daily range): BP systolic 124–147; BP diastolic 50–67; PULSE 68–78; RESP 16–24; TEMP 97.3–98.7; O2SAT 92–98
[2023-11-21] MEDS: HYDROcodone/acetaminophen 5mg/325mg tablet PO PRN ×2 (00:38→19:20)
[2023-11-21 05:36] LABS: BASOPHILS # (AUTO) 0.1 X10'3 (0-0.2); BASOPHILS % (AUTO) 0.6 % (0-1); EOSINOPHILS # (AUTO) 0.8 X10'3 (0-0.9); EOSINOPHILS % (AUTO) 8.5 % (0-6); PLATELET COUNT 230 X10'3 (140-440); WHITE BLOOD COUNT 9.4 X10'3 (4.5-11.0)
[2023-11-21 05:39] LABS: HEMATOCRIT 38.8 % (35.0-45.0); HEMOGLOBIN 12.9 g/dl (12.0-16.0); LYMPHOCYTES # (AUTO) 1.8 X10'3 (1.1-4.8); LYMPHOCYTES % (AUTO) 19.1 % (21-51); MEAN CORPUSCULAR HEMOGLOBIN 31.7 PG (27.0-31.0); MEAN CORPUSCULAR HGB CONC 33.3 g/dL (33.0-36.5); MEAN CORPUSCULAR VOLUME 95.2 FL (78-98); MEAN PLATELET VOLUME 10.3 FL (7.4-10.4); MONOCYTES # (AUTO) 1.4 X10'3 (0-0.9); MONOCYTES % (AUTO) 14.5 % (2-12); NEUTROPHILS # (AUTO) 5.4 X10'3 (1.8-7.7); NEUTROPHILS % (AUTO) 57.3 % (42-75); RED BLOOD COUNT 4.08 X10'6 (4.20-5.60); RED CELL DISTRIBUTION WIDTH 12.6 % (11.5-14.5)
[2023-11-21 06:03] LABS: ALANINE AMINOTRANSFERASE 34 U/L (12-78); ALBUMIN 2.8 G/DL (3.4-5.0); ALBUMIN/GLOBULIN RATIO 0.7 (1.1-1.5); ALKALINE PHOSPHATASE 51 IU/L (46-116); ANION GAP 6 (8-16); ASPARTATE AMINO TRANSFERASE 18 U/L (10-37); BILIRUBIN,TOTAL 0.3 MG/DL (0.1-1.0); BLOOD UREA NITROGEN 16 MG/DL (7-18); BUN/CREATININE RATIO 17.2 (10.0-20.0); CALCIUM 9.1 MG/DL (8.5-10.1); CHLORIDE 100 MMOL/L (99-107); CREATININE 0.93 MG/DL (0.40-0.90); GLUCOSE 163 MG/DL (70-104); POTASSIUM 4.4 MMOL/L (3.5-5.1); SODIUM 135 MMOL/L (135-145); TOTAL CARBON DIOXIDE 28.6 MMOL/L (24-32); TOTAL PROTEIN 6.6 G/DL (6.4-8.2); eCRCL 64 ML/MIN; eGFR 63 ML/MIN
[2023-11-21] MEDS: nicotine 14mg patch - 24hr TD SCH (07:46)
[2023-11-21] MEDS: lisinopril 20mg tablet PO SCH ×2 (07:54→19:35)
[2023-11-21] MEDS: potassium Cl 20 mEq SR tablet PO SCH (07:54)
[2023-11-21] MEDS: amLODIPine 5mg tablet PO SCH (07:54)
[2023-11-21] MEDS: metFORMIN 500mg tablet PO SCH (07:54)
[2023-11-21] MEDS: metoprolol succinate 25mg (24-HOUR) SR. Tablet PO SCH (07:54)
[2023-11-21] MEDS: duloxetine 30mg CAPSULE.DR PO SCH ×2 (07:54→19:33)
[2023-11-21] MEDS: heparin, porcine 5000 units/ml vial SQ SCH ×2 (07:56→19:33)
[2023-11-21] MEDS: Fluticasone/Umeclidin/Vilanter (Trelegy Ellipta 100-62.5-25) INHALER IH SCH (08:00)
[2023-11-21] MEDS: docusate sod 100mg capsule PO SCH ×2 (08:00→19:33)
[2023-11-21] MEDS: albuterol 2.5 MG/3 ML nebule NEB PRN ×3 (08:17→23:48)
[2023-11-21] MEDS: NORMAL SALINE IV SCH (08:28)
[2023-11-21] MEDS: CEFTRIAXONE IV SCH (08:28)
[2023-11-21] MEDS: azithromycin/NS 500mg/250ml 250 ML IV SCH (08:28)
[2023-11-21] MEDS ORDERED: glucagon, human recombinant 1mg kit SUBCUT PRN (13:15)
[2023-11-21] MEDS ORDERED: DEXTROSE 15 GM of carb/4 tabs (each vial/BOTTLE has 4 tablets) PO PRN ×2 (13:15)
[2023-11-21] MEDS ORDERED: MESSAGE TO PHARMACY PO ONE (13:15)
[2023-11-21] MEDS ORDERED: dextrose 50%-water 50ml dispensing syringe IV PRN ×2 (13:15)
[2023-11-21 14:26] LABS: HEMOGLOBIN A1C 7.7 % (4.5-6.2)
[2023-11-21] MEDS ORDERED: methylPREDNISolone sod succ 125mg/2ml vial IV ONE (19:15)
[2023-11-21] MEDS: insulin glargine (Lantus) pen - multi-dose SQ SCH (21:00)
[2023-11-21] MEDS: gabapentin 300mg capsule PO SCH (21:24)
[2023-11-21] MEDS: atorvastatin 20mg tablet PO SCH (21:24)
[2023-11-22] VITALS (19 sets, daily range): BP systolic 125–169; BP diastolic 58–87; PULSE 60–91; RESP 16–24; TEMP 97.6–99.7; O2SAT 90–96
[2023-11-22] MEDS: NORMAL SALINE IV SCH (07:28)
[2023-11-22] MEDS: CEFTRIAXONE IV SCH (07:28)
[2023-11-22] MEDS: potassium Cl 20 mEq SR tablet PO SCH (07:29)
[2023-11-22] MEDS: lisinopril 20mg tablet PO SCH ×2 (07:29→21:45)
[2023-11-22] MEDS: duloxetine 30mg CAPSULE.DR PO SCH ×2 (07:29→21:43)
[2023-11-22] MEDS: docusate sod 100mg capsule PO SCH ×2 (07:29→20:00)
[2023-11-22] MEDS: amLODIPine 5mg tablet PO SCH (07:29)
[2023-11-22] MEDS: heparin, porcine 5000 units/ml vial SQ SCH ×2 (07:30→21:46)
[2023-11-22] MEDS: nicotine 14mg patch - 24hr TD SCH (07:30)
[2023-11-22 07:31] LABS: ALANINE AMINOTRANSFERASE 36 U/L (12-78); ALBUMIN 3.2 G/DL (3.4-5.0); ALBUMIN/GLOBULIN RATIO 0.7 (1.1-1.5); ALKALINE PHOSPHATASE 57 IU/L (46-116); ANION GAP 11 (8-16); ASPARTATE AMINO TRANSFERASE 22 U/L (10-37); BILIRUBIN,TOTAL 0.3 MG/DL (0.1-1.0); BLOOD UREA NITROGEN 16 MG/DL (7-18); BUN/CREATININE RATIO 15.4 (10.0-20.0); CALCIUM 9.7 MG/DL (8.5-10.1); CHLORIDE 97 MMOL/L (99-107); CREATININE 1.04 MG/DL (0.40-0.90); GLUCOSE 265 MG/DL (70-104); POTASSIUM 4.5 MMOL/L (3.5-5.1); SODIUM 134 MMOL/L (135-145); TOTAL CARBON DIOXIDE 26.3 MMOL/L (24-32); eCRCL 57 ML/MIN; eGFR 56 ML/MIN
[2023-11-22 07:41] LABS: BASOPHILS % (AUTO) 0.2 % (0-1); EOSINOPHILS % (AUTO) 0.2 % (0-6); HEMATOCRIT 41.9 % (35.0-45.0); HEMOGLOBIN 14.2 g/dl (12.0-16.0); LYMPHOCYTES # (AUTO) 1.3 X10'3 (1.1-4.8); LYMPHOCYTES % (AUTO) 13.6 % (21-51); MEAN CORPUSCULAR HEMOGLOBIN 32.1 PG (27.0-31.0); MEAN CORPUSCULAR HGB CONC 33.9 g/dL (33.0-36.5); MEAN CORPUSCULAR VOLUME 94.8 FL (78-98); MEAN PLATELET VOLUME 10.1 FL (7.4-10.4); MONOCYTES # (AUTO) 0.4 X10'3 (0-0.9); MONOCYTES % (AUTO) 4.2 % (2-12); NEUTROPHILS # (AUTO) 7.6 X10'3 (1.8-7.7); NEUTROPHILS % (AUTO) 81.8 % (42-75); PLATELET COUNT 274 X10'3 (140-440); RED BLOOD COUNT 4.42 X10'6 (4.20-5.60); RED CELL DISTRIBUTION WIDTH 12.8 % (11.5-14.5); WHITE BLOOD COUNT 9.3 X10'3 (4.5-11.0)
[2023-11-22] MEDS: Fluticasone/Umeclidin/Vilanter (Trelegy Ellipta 100-62.5-25) INHALER IH SCH (08:00)
[2023-11-22] MEDS: azithromycin/NS 500mg/250ml 250 ML IV SCH (09:14)
[2023-11-22] MEDS: insulin Lispro (HumaLOG) vial - multi-dose SQ SCH ×4 (09:14→21:56)
[2023-11-22] MEDS: HYDROcodone/acetaminophen 5mg/325mg tablet PO PRN ×2 (10:10→19:16)
[2023-11-22] MEDS: ipratropium/albuterol 3ml nebule NEB SCH ×4 (11:46→23:32)
[2023-11-22] MEDS: methylPREDNISolone sod succ 125mg/2ml vial IV SCH (19:46)
[2023-11-22] MEDS: atorvastatin 20mg tablet PO SCH (21:44)
[2023-11-22] MEDS: gabapentin 300mg capsule PO SCH (21:44)
[2023-11-22] MEDS: insulin glargine (Lantus) pen - multi-dose SQ SCH (21:55)
[2023-11-23] VITALS (10 sets, daily range): BP systolic 140; BP diastolic 68; PULSE 65–86; RESP 18–21; TEMP 97.9; O2SAT 91–94
[2023-11-23] MEDS: ipratropium/albuterol 3ml nebule NEB SCH ×4 (03:08→16:05)
[2023-11-23 07:01] LABS: BASOPHILS % (AUTO) 0.1 % (0-1); EOSINOPHILS % (AUTO) 0 % (0-6); HEMATOCRIT 40.2 % (35.0-45.0); HEMOGLOBIN 13.3 g/dl (12.0-16.0); LYMPHOCYTES % (AUTO) 10.5 % (21-51); MEAN CORPUSCULAR HEMOGLOBIN 31.6 PG (27.0-31.0); MEAN CORPUSCULAR HGB CONC 33.2 g/dL (33.0-36.5); MEAN CORPUSCULAR VOLUME 95.3 FL (78-98); MEAN PLATELET VOLUME 9.9 FL (7.4-10.4); MONOCYTES # (AUTO) 0.7 X10'3 (0-0.9); MONOCYTES % (AUTO) 6.8 % (2-12); NEUTROPHILS # (AUTO) 7.9 X10'3 (1.8-7.7); NEUTROPHILS % (AUTO) 82.6 % (42-75); PLATELET COUNT 271 X10'3 (140-440); RED BLOOD COUNT 4.22 X10'6 (4.20-5.60); RED CELL DISTRIBUTION WIDTH 12.5 % (11.5-14.5); WHITE BLOOD COUNT 9.6 X10'3 (4.5-11.0)
[2023-11-23 07:12] LABS: ALANINE AMINOTRANSFERASE 37 U/L (12-78); ALBUMIN/GLOBULIN RATIO 0.7 (1.1-1.5); ALKALINE PHOSPHATASE 59 IU/L (46-116); ANION GAP 11 (8-16); ASPARTATE AMINO TRANSFERASE 20 U/L (10-37); BILIRUBIN,TOTAL 0.3 MG/DL (0.1-1.0); BLOOD UREA NITROGEN 19 MG/DL (7-18); BUN/CREATININE RATIO 17.4 (10.0-20.0); CHLORIDE 97 MMOL/L (99-107); CREATININE 1.09 MG/DL (0.40-0.90); GLUCOSE 311 MG/DL (70-104); POTASSIUM 4.3 MMOL/L (3.5-5.1); SODIUM 132 MMOL/L (135-145); TOTAL CARBON DIOXIDE 23.6 MMOL/L (24-32); TOTAL PROTEIN 7.2 G/DL (6.4-8.2); eCRCL 54 ML/MIN; eGFR 53 ML/MIN
[2023-11-23] MEDS ORDERED: pantoprazole 40mg Tablet.DR PO SCH (07:30)
[2023-11-23] MEDS ORDERED: azithromycin 250mg tablet PO SCH (08:00)
[2023-11-23] MEDS: Fluticasone/Umeclidin/Vilanter (Trelegy Ellipta 100-62.5-25) INHALER IH SCH (08:00)
[2023-11-23] MEDS: NORMAL SALINE IV SCH (08:41)
[2023-11-23] MEDS: CEFTRIAXONE IV SCH (08:41)
[2023-11-23] MEDS: methylPREDNISolone sod succ 125mg/2ml vial IV SCH (08:41)
[2023-11-23] MEDS: duloxetine 30mg CAPSULE.DR PO SCH (08:42)
[2023-11-23] MEDS: heparin, porcine 5000 units/ml vial SQ SCH (08:46)
[2023-11-23] MEDS: lisinopril 20mg tablet PO SCH (08:47)
[2023-11-23] MEDS: potassium Cl 20 mEq SR tablet PO SCH (08:48)
[2023-11-23] MEDS: amLODIPine 5mg tablet PO SCH (08:48)
[2023-11-23] MEDS: docusate sod 100mg capsule PO SCH (09:00)
[2023-11-23] MEDS: insulin Lispro (HumaLOG) vial - multi-dose SQ SCH ×2 (09:19→15:10)
[2023-11-23] MEDS: HYDROcodone/acetaminophen 5mg/325mg tablet PO PRN ×2 (09:24→15:17)
[2023-11-23] MEDS ORDERED: iohexol 350MG/ML 100ml bottle IV ONE (14:25)
[2023-11-23] MEDS ORDERED: PANT40TA54 PO (16:06)
[2023-11-23] MEDS ORDERED: IPRA3AMP9 NEB (16:06)
[2023-11-23] MEDS ORDERED: PRED10TA23 PO (16:06)
[2023-11-23] MEDS ORDERED: LEVO-65 PO (16:06)
== END 2023-11-23 17:55 | disposition home or self-care (01) | DRG 193 ==
LOC: ER 12:55 → ED HOLD 20:26 → ORTHO 4S 11-20 00:25
PROVIDERS: ADMIT Family Medicine; ATTEND Family Medicine
PROC: 5A09357 Assistance with Respiratory Ventilation, Less than 24 Consecutive Hours, Continuous Positive Airway Pressure (ICD-10-PCS; principal; 2023-11-19)
PROC: 5A09357 Assistance with Respiratory Ventilation, Less than 24 Consecutive Hours, Continuous Positive Airway Pressure (ICD-10-PCS; 2023-11-19)
PROC: 5A09357 Assistance with Respiratory Ventilation, Less than 24 Consecutive Hours, Continuous Positive Airway Pressure (ICD-10-PCS; 2023-11-19)
PROC: 5A09357 Assistance with Respiratory Ventilation, Less than 24 Consecutive Hours, Continuous Positive Airway Pressure (ICD-10-PCS; 2023-11-19)
DX: J18.9 Pneumonia, unspecified organism (principal); J96.00 Acute respiratory failure, unspecified whether with hypoxia or hypercapnia; J44.1 Chronic obstructive pulmonary disease with (acute) exacerbation; Z68.43 Body mass index [BMI] 50.0-59.9, adult; N17.9 Acute kidney failure, unspecified; J40 Bronchitis, not specified as acute or chronic; E66.01 Morbid (severe) obesity due to excess calories; I12.9 Hypertensive chronic kidney disease with stage 1 through stage 4 chronic kidney disease, or unspecified chronic kidney disease; N18.2 Chronic kidney disease, stage 2 (mild); E11.22 Type 2 diabetes mellitus with diabetic chronic kidney disease; E78.00 Pure hypercholesterolemia, unspecified; E11.42 Type 2 diabetes mellitus with diabetic polyneuropathy; J00 Acute nasopharyngitis [common cold]; F17.210 Nicotine dependence, cigarettes, uncomplicated; F10.90 Alcohol use, unspecified, uncomplicated; Z20.822 Contact with and (suspected) exposure to COVID-19; F11.90 Opioid use, unspecified, uncomplicated; Z90.49 Acquired absence of other specified parts of digestive tract; Z90.79 Acquired absence of other genital organ(s); Z79.899 Other long term (current) drug therapy; Z80.0 Family history of malignant neoplasm of digestive organs; Z88.1 Allergy status to other antibiotic agents
CPT/HCPCS: 36415; 71045; 71260; 74177; 80053; 81001; 81025; 82948; 83036; 83605; 83735; 83880; 84100; 84145; 84484; 85025; 85610; 85651; 85730; 86140; 87040; 87070; 87081; 87811; 94640; 94660; 94760; 99285; G0378; J0456; J0696; J1644; J1815; J2930; J3490; J7030; Q9967

== ENCOUNTER 2024-08-22 09:12 | Emergency (ER) | payer BC, MEDICARE ==
[~2024-08-22] VITALS: Ht 165.1 cm; Wt 164.0 kg
[~2024-08-22 09:12] MED LIST changes: +IPRA3AMP9 NEB; +METF-436 PO; +PANT40TA54 PO; -PRED10TA23 PO
[2024-08-22] MEDS ORDERED: DOXY-460 PO (09:52)
[2024-08-22 10:14] VITALS: BP 144/78; PULSE 74; RESP 16; TEMP 98.1; O2SAT 99
== END 2024-08-22 10:15 | disposition home or self-care (01) ==
LOC: ER 09:12
DX: L03.115 Cellulitis of right lower limb (principal); L02.611 Cutaneous abscess of right foot; M79.89 Other specified soft tissue disorders; Z88.1 Allergy status to other antibiotic agents; Z79.899 Other long term (current) drug therapy; Z79.51 Long term (current) use of inhaled steroids; Z79.84 Long term (current) use of oral hypoglycemic drugs
CPT/HCPCS: 99283